=== PATIENT | female | born 1975 | race Caucasian/White ===

== ENCOUNTER → 2023-04-15 | Outpatient (CLI) | payer OTHER | END | disposition home or self-care (01) | LOC: ICE 08:36 | PROVIDERS: ATTEND Hospitalist | DX: Z20.822 Contact with and (suspected) exposure to COVID-19 (principal) | CPT/HCPCS: 87426 ==

== ENCOUNTER 2024-01-19 05:31 | Emergency (ER) | payer OTHER ==
[~2024-01-19] VITALS: Ht 162.6 cm; Wt 97.1 kg
[2024-01-19 06:04] VITALS: BP 129/59; PULSE 104; RESP 20; O2SAT 96
[2024-01-19 06:09] LABS: RAPID GROUP A STREP negative (NEGATIVE)
[2024-01-19 06:19] LABS: COVID19 (SARS ANTIGEN RAPID) PRESUMPTIVE NEGATIVE (NEGATIVE)
[2024-01-19 06:24] LABS: INFLUENZA TYPE A NEGATIVE FOR TYPE A (NEGATIVE); INFLUENZA TYPE B NEGATIVE FOR TYPE B (NEGATIVE)
== END 2024-01-19 06:38 | disposition home or self-care (01) ==
LOC: EDH 05:31
DX: J06.9 Acute upper respiratory infection, unspecified (principal); B97.89 Other viral agents as the cause of diseases classified elsewhere; Z20.822 Contact with and (suspected) exposure to COVID-19
CPT/HCPCS: 87426; 87804; 87880

== ENCOUNTER 2024-03-08 22:26 | Emergency (ER) | payer OTHER ==
[~2024-03-08] VITALS: Ht 165.1 cm; Wt 98.0 kg
[2024-03-09] MEDS: ACETAMINOPHEN 500 MG TABLET PO ONE (00:12)
[2024-03-09] MEDS: IBUPROFEN 600 MG TABLET PO ONE (00:13)
[2024-03-09 00:17] VITALS: BP 132/88; PULSE 88; RESP 18; O2SAT 98
== END 2024-03-09 00:32 | disposition home or self-care (01) ==
LOC: EDH 22:26
DX: S93.402A Sprain of unspecified ligament of left ankle, initial encounter (principal); S80.01XA Contusion of right knee, initial encounter; E11.9 Type 2 diabetes mellitus without complications; I10 Essential (primary) hypertension; Z90.710 Acquired absence of both cervix and uterus; X50.1XXA Overexertion from prolonged static or awkward postures, initial encounter; Y93.89 Activity, other specified; Y92.89 Other specified places as the place of occurrence of the external cause; Y99.8 Other external cause status
CPT/HCPCS: 73564; 73610